=== PATIENT | male | born 1975 | race Two or more races ===

== ENCOUNTER 2019-06-15 21:37 | Emergency (ER) | payer SELFPAY ==
[~2019-06-15] VITALS: Ht 180.3 cm; Wt 113.4 kg
[2019-06-15 23:20] VITALS: BP 136/61
== END 2019-06-15 23:32 | disposition home or self-care (01) ==
LOC: ER 21:40 → EDBD 21:40 → ER 23:32
DX: M19.111 Post-traumatic osteoarthritis, right shoulder (principal); J06.9 Acute upper respiratory infection, unspecified; F17.210 Nicotine dependence, cigarettes, uncomplicated
CPT/HCPCS: 71046; 73030